=== PATIENT | female | born 1995 | race Two or more races ===

== ENCOUNTER 2020-07-05 23:13 | Emergency (ER) | payer OTHER ==
[~2020-07-05] VITALS: Ht 152.4 cm; Wt 50.0 kg
[2020-07-06] MEDS ORDERED: KETOROLAC 15MG/ML VIAL IM ONE (00:15)
[2020-07-06 02:23] VITALS: BP 118/84
== END 2020-07-06 02:23 | disposition home or self-care (01) ==
LOC: ER 23:13
DX: M79.642 Pain in left hand (principal); M25.532 Pain in left wrist
CPT/HCPCS: 73110; 73130; 96372; 99284; J1885